=== PATIENT | female | born 1980 | race American Indian/Alaskan Native ===

== ENCOUNTER 2017-12-19 00:32 | Emergency (ER) | payer MEDICAID | END 2017-12-19 00:45 | disposition left against medical advice (07) | LOC: ED 00:32 | DX: R05 Cough (principal); Z53.21 Procedure and treatment not carried out due to patient leaving prior to being seen by health care provider ==

== ENCOUNTER 2019-08-04 21:03 | Emergency (ER) | payer MEDICAID ==
[2019-08-04 21:23] VITALS: BP 122/93
--- NOTE | 2019-08-04 21:33 | Emergency Department Report ---
Blank Doc - Documentation Documentation: Patient signed out before being seen. Patient stated if her boyfriend could not be in the room with her as a visitor she would not stay. Patient was not seen by provider.
== END 2019-08-05 00:16 | disposition left against medical advice (07) ==
LOC: ED 21:03
DX: F10.230 Alcohol dependence with withdrawal, uncomplicated (principal); Z53.21 Procedure and treatment not carried out due to patient leaving prior to being seen by health care provider
CPT/HCPCS: 82962

== ENCOUNTER 2019-08-11 11:51 | Emergency (ER) | payer MEDICAID ==
[2019-08-11] MEDS ORDERED: SODIUM CHLORIDE 0.9% 1000 ML 1,000 ML IV ONE ×2 (12:28→16:02)
[2019-08-11] MEDS ORDERED: LORazepam 2 MG/ML VIAL IV PRN (12:28)
[2019-08-11] MEDS ORDERED: chlordiazePOXIDE 25 MG CAP PO PRN (12:28)
--- NOTE | 2019-08-11 12:38 | Emergency Department Report ---
ED Alcohol HPI - General Chief Complaint: Alcohol Stated Complaint: ETOH Time Seen by Provider: 08/11/19 12:25 Source: patient Mode of arrival: Wheelchair Limitations: No Limitations - History of Present Illness Initial Comments: CC: "I need a detox from alcohol." HPI: Ms. Segura is a 38 yo female with hx of alcohol dependence "blood cancer", autoimmune disorder who presents alcohol withdrawal. She has auditory hallucinations. No visual hallucinations. Has been depressed. Has been heavily drinking for the past 2 weeks due to depression. Has nausea/vomiting. Diffuse tingling. Reports fever. Reports cough with hemoptysis. She reports previous ICU admission for DT's MD Complaint: alcohol withdrawal Last Drink: just [employer] Chronic Alcohol Use: Yes Previous Visits for Alcohol Intoxication?: Yes Recent Trauma: No Associated Symptoms: nausea, vomiting, other (tingling hemoptysis) - Related Data Previous Rx's Medication Instructions Recorded Last Taken Type LORazepam [Ativan] 1 mg PO TID PRN #7 tablet 09/03/13 Unknown Rx Potassium Chloride [Klor-Con] 20 meq PO BID #14 packet 01/26/18 Unknown Rx levETIRAcetam [Keppra TAB] 500 mg PO BID #60 tablet 02/22/18 Unknown Rx chlordiazePOXIDE [Librium] 25 mg PO QID #10 capsule 08/11/19 Unknown Rx Allergies Allergy/AdvReac Type Severity Reaction Status Date / Time ibuprofen Allergy Vomiting Verified 02/23/18 07:13 ED Review of Systems ROS: Stated complaint: ETOH Other details as noted in HPI Comment: All other systems reviewed and negative Constitutional: fever. denies: malaise Respiratory: cough Gastrointestinal: denies: abdominal pain, nausea, vomiting Neurological: paresthesias ED Past Medical Hx - Past Medical History Previous Medical History?: Yes Hx Renal Disease: Yes Hx of Cancer: Yes (blood) Hx Seizures: Yes (from alcohol withdrawal) Hx Psychiatric Treatment: No Additional medical history: Alcohol dependence, immune def disorder - Surgical History Past Surgical History?: Yes Additional Surgical History: facial surgery secondary to infection. tonsillectomy - Social History Smoking Status: Current Every Day Smoker Substance Use Type: Alcohol - Medications Home Medications: Home Medications Medication Instructions Recorded Confirmed Last Taken Type LORazepam [Ativan] 1 mg PO TID PRN #7 tablet 09/03/13 05/01/14 Unknown Rx Potassium Chloride [Klor-Con] 20 meq PO BID #14 packet 01/26/18 Unknown Rx levETIRAcetam [Keppra TAB] 500 mg PO BID #60 tablet 02/22/18 Unknown Rx chlordiazePOXIDE [Librium] 25 mg PO QID #10 capsule 08/11/19 Unknown Rx ED Physical Exam - General Limitations: No Limitations General appearance: alert, in no apparent distress, other (insightful, no tremor) - Head Head exam: Present: atraumatic, normocephalic - Eye Eye exam: Present: normal appearance - ENT ENT exam: Present: mucous membranes moist - Neck Neck exam: Present: normal inspection - Respiratory Respiratory exam: Present: normal lung sounds bilaterally. Absent: respiratory distress, wheezes, rales, rhonchi - Cardiovascular Cardiovascular Exam: Present: normal rhythm, tachycardia, normal heart sounds. Absent: systolic murmur, diastolic murmur, rubs, gallop - GI/Abdominal GI/Abdominal exam: Present: soft, normal bowel sounds. Absent: distended, tenderness, guarding, rebound - Extremities Exam Extremities exam: Present: normal inspection - Neurological Exam Neurological exam: Present: alert, oriented X3 - Psychiatric Psychiatric exam: Present: normal affect, normal mood - Skin Skin exam: Present: warm, dry, intact, normal color. Absent: rash ED Course Vital Signs 08/11/19 08/11/19 12:02 13:10 Temperature 98.1 F 98.5 F Pulse Rate 120 H 121 H Respiratory 20 24 Rate Blood Pressure 116/82 Blood Pressure 106/64 [Right] O2 Sat by Pulse 97 98 Oximetry ED Medical Decision Making - Lab Data Result diagrams: 08/11/19 12:43 08/11/19 12:43 Laboratory Results - last 24 hr 08/11/19 08/11/19 08/11/19 12:43 12:43 12:43 WBC 4.7 RBC 4.68 Hgb 13.3 Hct 39.1 MCV 84 MCH 28 MCHC 34 RDW 15.8 H Plt Count 362 Lymph % (Auto) 17.1 [place] % (Auto) 10.7 H Eos % (Auto) 1.6 Baso % (Auto) 1.5 Lymph # 0.8 L [place] # 0.5 Eos # 0.1 Baso # 0.1 Seg Neutrophils % 69.1 Seg Neutrophils # 3.2 PT 13.8 INR 1.08 Sodium 138 Potassium 3.6 Chloride 99.9 Carbon Dioxide 15 L Anion Gap 27 BUN 6 L Creatinine 0.6 L Estimated GFR > 60 BUN/Creatinine Ratio 10 Glucose 94 Calcium 8.6 Total Bilirubin < 0.20 AST 22 ALT 15 Alkaline Phosphatase 67 Total Protein 7.4 Albumin 4.5 Albumin/Globulin Ratio 1.6 Lipase 19 Salicylates Acetaminophen Plasma/Serum Alcohol 08/11/19 08/11/19 08/11/19 12:43 12:43 12:43 WBC RBC Hgb Hct MCV MCH MCHC RDW Plt Count Lymph % (Auto) [place] % (Auto) Eos % (Auto) Baso % (Auto) Lymph # [place] # Eos # Baso # Seg Neutrophils % Seg Neutrophils # PT INR Sodium Potassium Chloride Carbon Dioxide Anion Gap BUN Creatinine Estimated GFR BUN/Creatinine Ratio Glucose Calcium Total Bilirubin AST ALT Alkaline Phosphatase Total Protein Albumin Albumin/Globulin Ratio Lipase Salicylates 35.0 H Acetaminophen < 5.0 L Plasma/Serum Alcohol 0.23 H - Radiology Data Radiology results: report reviewed cxr: no acute findings - Medical Decision Making Ms. Segura presents with acute alcohol intoxication. She is now sober. I have provided outpatient resources for alcohol rehabilitation. She desired librium taper which I prescribed. Critical care attestation.: If time is entered above; I have spent that time in minutes in the direct care of this critically ill patient, excluding procedure time. ED Disposition Clinical Impression: Acute alcohol intoxication Disposition: DC-01 TO HOME OR SELFCARE Is pt being admited?: No Does the pt Need Aspirin: No Condition: Stable Additional Instructions: Please follow-up with the outpatient resources provided to you Prescriptions: chlordiazePOXIDE [Librium] 25 mg PO QID #10 capsule
[2019-08-11 13:22] LABS: Basophils # (Auto) 0.1 K/mm3 (0.0-0.1); Basophils % (Auto) 1.5 % (0.0-1.8); Eosinophils # (Auto) 0.1 K/mm3 (0.0-0.4); Eosinophils % (Auto) 1.6 % (0.0-4.3); Hematocrit 39.1 % (30.3-42.9); Hemoglobin 13.3 gm/dl (10.1-14.3); Lymphocytes # (Auto) 0.8 K/mm3 (1.2-5.4); Lymphocytes % (Auto) 17.1 % (13.4-35.0); Mean Corpuscular HGB Conc 34 % (30-34); Mean Corpuscular Volume 84 fl (79-97); Monocytes # (Auto) 0.5 K/mm3 (0.0-0.8); Monocytes % (Auto) 10.7 % (0.0-7.3); Platelet Count 362 K/mm3 (140-440); Red Blood Count 4.68 M/mm3 (3.65-5.03); Red Cell Distribution Width 15.8 % (13.2-15.2)
--- NOTE | 2019-08-11 13:29 | XRay Report ---
CHEST 1 VIEW 08/11/2019 12:22 PM INDICATION / CLINICAL INFORMATION: cough, fever. COMPARISON: Chest x-ray on 02/23/2018. FINDINGS: SUPPORT DEVICES: None. HEART / MEDIASTINUM: No significant abnormality. LUNGS / PLEURA: No significant pulmonary or pleural abnormality. No pneumothorax. ADDITIONAL FINDINGS: No significant additional findings. IMPRESSION: 1. No acute findings. Signer Name: Aleksandr Marquez MD Signed: 08/11/2019 1:24 PM Workstation Name: [id number]
[2019-08-11 13:39] LABS: Alanine Aminotransferase 15 units/L (7-56); Albumin 4.5 g/dL (3.9-5); BUN/Creatinine Ratio 10; Blood Urea Nitrogen 6 mg/dL (7-17); Calcium 8.6 mg/dL (8.4-10.2); Hemolysis Index 10
[2019-08-11 14:17] LABS: INR 1.08 (0.87-1.13)
[2019-08-11] MEDS ORDERED: ONDANSETRON 4 MG/2 ML INJ IV ONE (18:34)
[2019-08-11 18:54] VITALS: BP 110/79
[2019-08-11 19:04] LABS: Amphetamine Screen,Urine PRESUMPTIVE NEGATIVE; Benzodiazepines Screen,Urine PRESUMPTIVE NEGATIVE; Bilirubin,Urine NEG (Negative); Blood,Urine LG (Negative); Cannabinoid Screen,Urine PRESUMPTIVE NEGATIVE; Cocaine Screen,Urine PRESUMPTIVE NEGATIVE; Color,Urine Yellow (Yellow); Methadone Screen,Urine PRESUMPTIVE NEGATIVE; Mucus,Urine FEW /HPF; Opiate Screen,Urine PRESUMPTIVE NEGATIVE; Urobilinogen,Urine < 2.0 mg/dL (<2.0)
[2019-08-11 19:06] LABS: RBC,Urine > 182.0 /HPF (0.0-6.0)
[2019-08-11 19:07] LABS: WBC,Urine > 182.0 /HPF (0.0-6.0)
== END 2019-08-11 18:54 | disposition home or self-care (01) ==
LOC: ED 11:51
DX: F10.129 Alcohol abuse with intoxication, unspecified (principal); F17.200 Nicotine dependence, unspecified, uncomplicated; R11.2 Nausea with vomiting, unspecified; Z88.6 Allergy status to analgesic agent; Z98.890 Other specified postprocedural states; Z79.899 Other long term (current) drug therapy; Z86.69 Personal history of other diseases of the nervous system and sense organs
CPT/HCPCS: 36415; 71045; 80053; 80307; 81001; 83690; 85025; 85610; 96361; 96374; 96375; 99285; J2060; J2405; J7030; 80320; G0480

== ENCOUNTER 2019-10-14 03:25 | Emergency (ER) | payer MEDICAID ==
[2019-10-14] MEDS ORDERED: levETIRAcetam 1000 MG/NS 0.75% 1,000 MG/100 ML BAG IV ONE (03:33)
[2019-10-14] MEDS ORDERED: SODIUM CHLORIDE 0.9% 1000 ML 1,000 ML IV ONE (03:33)
[2019-10-14] MEDS ORDERED: ONDANSETRON 4 MG/2 ML INJ IV ONE (04:12)
[2019-10-14] MEDS ORDERED: LORazepam 2 MG/ML VIAL IV PRN (04:12)
[2019-10-14] MEDS: LORazepam 2 MG/ML VIAL IV PRN ×2 (04:20→12:28)
[2019-10-14] MEDS ORDERED: THIAMINE 100 MG, FOLIC ACID 1 MG, MULTIPLE VITAMIN INJ, ADULT 10 ML in SODIUM CHLORIDE ... IV ONE (04:42)
--- NOTE | 2019-10-14 05:39 | Emergency Department Report ---
Blank Doc - Documentation Documentation: This patient presents to the emergency department with a complaint of multiple seizures prior to arrival, as well as nausea, vomiting and some lightheadedness. The patient has a seizure disorder history and admits to noncompliance with her Keppra. On top of that, the patient has a history of alcohol abuse/dependence and subsequent withdrawal including 1 previous visit for delirium tremens. At my initial evaluation, the patient is awake and oriented. An EKG was done that does not have any morphology consistent with ST elevation NC. The patient has been placed on a banana bag for IV fluid resuscitation and has been placed on [place] protocol. The patient has been loaded with 1 g of Keppra and has been given a dose of Zofran for her nausea. Labs have been ordered.
[2019-10-14 05:40] LABS: Basophils # (Auto) 0.1 K/mm3 (0.0-0.1); Basophils % (Auto) 1.4 % (0.0-1.8); Eosinophils # (Auto) 0.6 K/mm3 (0.0-0.4); Eosinophils % (Auto) 14.5 % (0.0-4.3); Hematocrit 35.2 % (30.3-42.9); Hemoglobin 11.2 gm/dl (10.1-14.3); Lymphocytes # (Auto) 1.3 K/mm3 (1.2-5.4); Lymphocytes % (Auto) 29.1 % (13.4-35.0); Mean Corpuscular HGB Conc 32 % (30-34); Mean Corpuscular Volume 86 fl (79-97); Monocytes # (Auto) 0.3 K/mm3 (0.0-0.8); Platelet Count 360 K/mm3 (140-440); Red Blood Count 4.08 M/mm3 (3.65-5.03)
[2019-10-14 05:43] LABS: Red Cell Distribution Width 20.5 % (13.2-15.2)
[2019-10-14 06:14] LABS: Alanine Aminotransferase 49 units/L (7-56); Albumin 4.2 g/dL (3.9-5); BUN/Creatinine Ratio 8; Blood Urea Nitrogen 6 mg/dL (7-17); Calcium 8.2 mg/dL (8.4-10.2); Hemolysis Index 8
--- NOTE | 2019-10-14 06:47 | Emergency Department Report ---
ED Seizure HPI - General Chief Complaint: Seizure Stated Complaint: SEIZURES Time Seen by Provider: 10/14/19 03:33 Source: EMS Mode of arrival: Stretcher Limitations: Altered Mental Status - History of Present Illness Initial Comments: 39-year-old female with a past medical history of alcohol dependence/abuse and seizure disorder presents to the hospital with multiple seizures prior to arrival. Patient's been noncompliant with her seizure medication. Patient continues to drink alcohol. History of alcohol withdrawal delirium/seizures in the past. Patient was alert and answer questions during initial provided screening exam. She is drowsy and sleeping during my initial patient contact. She denies any pain. Jasmine Edward CIWA protocol initiated by screening provider. - Related Data Previous Rx's Medication Instructions Recorded Last Taken Type LORazepam [Ativan] 1 mg PO TID PRN #7 tablet 09/03/13 Unknown Rx RX: Potassium Chloride [Klor-Con] 20 meq PO BID #14 packet 01/26/18 Unknown Rx Ondansetron [Zofran Odt] 4 mg PO Q8HR PRN #10 tab.rapdis 10/14/19 Unknown Rx RX: chlordiazePOXIDE [Librium] 25 mg PO QID #20 capsule 10/14/19 Unknown Rx RX: levETIRAcetam [Keppra TAB] 500 mg PO BID #60 tablet 10/14/19 Unknown Rx Allergies Allergy/AdvReac Type Severity Reaction Status Date / Time ibuprofen Allergy Vomiting Verified 02/23/18 07:13 ED Review of Systems ROS: Stated complaint: SEIZURES Other details as noted in HPI Comment: All other systems reviewed and negative ED Past Medical Hx - Past Medical History Previous Medical History?: Yes Hx Renal Disease: Yes Hx Seizures: Yes (from alcohol withdrawal) Hx Psychiatric Treatment: No Additional medical history: Alcohol dependence, immune def disorder, Anemia - Surgical History Additional Surgical History: facial surgery secondary to infection. tonsillectomy - Social History Smoking Status: Current Every Day Smoker Substance Use Type: Alcohol - Medications Home Medications: Home Medications Medication Instructions Recorded Confirmed Last Taken Type LORazepam [Ativan] 1 mg PO TID PRN #7 tablet 09/03/13 05/01/14 Unknown Rx RX: Potassium Chloride [Klor-Con] 20 meq PO BID #14 packet 01/26/18 Unknown Rx Ondansetron [Zofran Odt] 4 mg PO Q8HR PRN #10 tab.rapdis 10/14/19 Unknown Rx RX: chlordiazePOXIDE [Librium] 25 mg PO QID #20 capsule 10/14/19 Unknown Rx RX: levETIRAcetam [Keppra TAB] 500 mg PO BID #60 tablet 10/14/19 Unknown Rx ED Physical Exam - General Limitations: Altered Mental Status - Other Other exam information: General: No acute distress Head: Atraumatic Eyes: normal appearance ENT: Moist mucous membranes Neck: Normal appearance, no midline tenderness Chest: Clear to auscultation bilaterally CV: Tachycardic regular rhythm Abdomen: Soft, normal bowel sounds, nontender, nondistended, no rebound or guarding Back: Normal inspection Extremity: Normal inspection, full range of motion Neuro: Drowsy/sleeping, arousable, no focal deficits Skin: No rash ED Course Vital Signs 10/14/19 10/14/19 10/14/19 03:32 03:38 03:40 Temperature 98.8 F 98.8 F Pulse Rate 112 H 105 H 111 H Respiratory 20 26 H 20 Rate Blood Pressure 121/88 Blood Pressure 121/88 [Right] O2 Sat by Pulse 99 97 99 Oximetry 10/14/19 10/14/19 10/14/19 03:45 04:00 04:06 Temperature Pulse Rate 107 H 100 H Respiratory 17 18 18 Rate Blood Pressure 125/88 115/82 Blood Pressure [Right] O2 Sat by Pulse 98 97 Oximetry 10/14/19 10/14/19 10/14/19 04:15 04:30 04:45 Temperature Pulse Rate 108 H 106 H 100 H Respiratory 16 29 H 19 Rate Blood Pressure 128/92 124/82 124/82 Blood Pressure [Right] O2 Sat by Pulse 98 94 92 Oximetry 10/14/19 10/14/19 10/14/19 05:00 05:15 05:30 Temperature Pulse Rate 109 H 108 H 106 H Respiratory 22 20 21 Rate Blood Pressure 132/87 118/77 106/85 Blood Pressure [Right] O2 Sat by Pulse 92 84 Oximetry 10/14/19 10/14/19 10/14/19 05:45 06:00 06:15 Temperature Pulse Rate 105 H 104 H 105 H Respiratory 21 36 H 18 Rate Blood Pressure 129/91 126/74 106/70 Blood Pressure [Right] O2 Sat by Pulse 96 91 91 Oximetry 10/14/19 10/14/19 10/14/19 06:31 06:45 07:00 Temperature Pulse Rate 130 H 140 H 113 H Respiratory 24 15 22 Rate Blood Pressure 147/108 147/108 118/94 Blood Pressure [Right] O2 Sat by Pulse 100 99 Oximetry 10/14/19 10/14/19 10/14/19 07:15 07:30 08:00 Temperature Pulse Rate 111 H 106 H 103 H Respiratory 21 15 24 Rate Blood Pressure 144/94 146/95 139/85 Blood Pressure [Right] O2 Sat by Pulse 96 96 Oximetry 10/14/19 10/14/19 10/14/19 08:30 09:01 09:30 Temperature Pulse Rate 113 H 100 H 100 H Respiratory 25 H 15 18 Rate Blood Pressure 143/95 165/109 160/108 Blood Pressure [Right] O2 Sat by Pulse 99 98 88 Oximetry - Reevaluation(s) Reevaluation #1: 10/14/19 12:39 Patient awake at this time. While she was resting heart rate in the 90s. When she woke up she had increased tachycardia, episode of vomiting anxiety feeling, mild tremors, and had a CIWA score of 9. Ativan was administered by nurse as per CIWA protocol. Patient states she feels better and prefers to go home with Librium taper. I offered patient admission to the hospital several times for treatment for alcohol withdrawal which she has declined. Patient will also be discharged on Keppra to take at home and encouraged to come back if symptoms worsen. Outpatient alcohol abuse resources will be provided ED Medical Decision Making - Lab Data Result diagrams: 10/14/19 04:09 10/14/19 04:09 Lab Results 10/14/19 10/14/19 10/14/19 Range/Units 04:09 04:09 04:09 WBC 4.3 L (4.5-11.0) K/mm3 RBC 4.08 (3.65-5.03) M/mm3 Hgb 11.2 (10.1-14.3) gm/dl Hct 35.2 (30.3-42.9) % MCV 86 (79-97) fl MCH 28 (28-32) pg MCHC 32 (30-34) % RDW 20.5 H (13.2-15.2) % Plt Count 360 (140-440) K/mm3 Lymph % (Auto) 29.1 (13.4-35.0) % [place] % (Auto) 8.0 H (0.0-7.3) % Eos % (Auto) 14.5 H (0.0-4.3) % Baso % (Auto) 1.4 (0.0-1.8) % Lymph # 1.3 (1.2-5.4) K/mm3 [place] # 0.3 (0.0-0.8) K/mm3 Eos # 0.6 H (0.0-0.4) K/mm3 Baso # 0.1 (0.0-0.1) K/mm3 Seg Neutrophils % 47.0 (40.0-70.0) % Seg Neutrophils # 2.0 (1.8-7.7) K/mm3 Sodium 141 (137-145) mmol/L Potassium 4.1 (3.6-5.0) mmol/L Chloride 106.5 (98-107) mmol/L Carbon Dioxide 18 L (22-30) mmol/L Anion Gap 21 mmol/L BUN 6 L (7-17) mg/dL Creatinine 0.8 (0.7-1.2) mg/dL Estimated GFR > 60 ml/min BUN/Creatinine Ratio 8 % Glucose 84 (65-100) mg/dL Calcium 8.2 L (8.4-10.2) mg/dL Phosphorus (2.5-4.5) mg/dL Magnesium (1.7-2.3) mg/dL Total Bilirubin < 0.20 (0.1-1.2) mg/dL AST 62 H (5-40) units/L ALT 49 (7-56) units/L Alkaline Phosphatase 49 (35-129) units/L Total Protein 6.5 (6.3-8.2) g/dL Albumin 4.2 (3.9-5) g/dL Albumin/Globulin Ratio 1.8 % HCG, Qual (Negative) Plasma/Serum Alcohol 0.28 H (0-0.07) % 10/14/19 10/14/19 10/14/19 Range/Units 04:09 04:21 Unknown WBC (4.5-11.0) K/mm3 RBC (3.65-5.03) M/mm3 Hgb (10.1-14.3) gm/dl Hct (30.3-42.9) % MCV (79-97) fl MCH (28-32) pg MCHC (30-34) % RDW (13.2-15.2) % Plt Count (140-440) K/mm3 Lymph % (Auto) (13.4-35.0) % [place] % (Auto) (0.0-7.3) % Eos % (Auto) (0.0-4.3) % Baso % (Auto) (0.0-1.8) % Lymph # (1.2-5.4) K/mm3 [place] # (0.0-0.8) K/mm3 Eos # (0.0-0.4) K/mm3 Baso # (0.0-0.1) K/mm3 Seg Neutrophils % (40.0-70.0) % Seg Neutrophils # (1.8-7.7) K/mm3 Sodium (137-145) mmol/L Potassium (3.6-5.0) mmol/L Chloride (98-107) mmol/L Carbon Dioxide (22-30) mmol/L Anion Gap mmol/L BUN (7-17) mg/dL Creatinine (0.7-1.2) mg/dL Estimated GFR ml/min BUN/Creatinine Ratio % Glucose (65-100) mg/dL Calcium (8.4-10.2) mg/dL Phosphorus 3.50 (2.5-4.5) mg/dL Magnesium 1.90 2.00 (1.7-2.3) mg/dL Total Bilirubin (0.1-1.2) mg/dL AST (5-40) units/L ALT (7-56) units/L Alkaline Phosphatase (35-129) units/L Total Protein (6.3-8.2) g/dL Albumin (3.9-5) g/dL Albumin/Globulin Ratio % HCG, Qual Negative (Negative) Plasma/Serum Alcohol (0-0.07) % - EKG Data -: EKG Interpreted by [facility] EKG shows normal: sinus rhythm, ST-T waves (No STEMI) Rate: tachycardia (99) - Medical Decision Making Patient initially presented with seizure and acute alcohol intoxication. While she was resting heart rate in the 90s. When she woke up she had increased tachy cardia, episode of vomiting anxiety feeling, mild tremors, and had a CIWA score of 9. Ativan was administered by nurse as per CIWA protocol. Patient states she feels better and prefers to go home with Librium taper. I offered patient admission to the hospital several times for treatment for alcohol withdrawal which she has declined. Patient will also be discharged on Keppra to take at home and encouraged to come back if symptoms worsen. Outpatient alcohol abuse resources will be provided. pt is alert. Critical Care Time: No Critical care attestation.: If time is entered above; I have spent that time in minutes in the direct care of this critically ill patient, excluding procedure time. ED Disposition Clinical Impression: Alcohol dependence, Seizure disorder, Noncompliance with medication regimen Disposition: - TO HOME OR SELFCARE Is pt being admited?: No Does the pt Need Aspirin: No Condition: Stable Instructions: Abuse of Alcohol (ED), Alcohol Withdrawal (ED) Additional Instructions: Take the medication as prescribed. Follow-up with your doctor or doctor/clinic provided. Return if symptoms worsen as indicated by your discharge instructions. Admission was offered because you are exhibiting signs of alcohol withdrawal. You have declined admission to the hospital at this time. Librium has been prescribed to aid with your withdrawal symptoms. If your withdrawal symptoms worsen please come back to the ER for reevaluation. Follow-up with outpatient resources provided. Prescriptions: RX: levETIRAcetam [Keppra TAB] 500 mg PO BID #60 tablet RX: chlordiazePOXIDE [Librium] 25 mg PO QID #20 capsule Ondansetron [Zofran Odt] 4 mg PO Q8HR PRN #10 tab.rapdis PRN Reason: Nausea And Vomiting Referrals: PRIMARY CARE,MD [Primary Care Provider] - 3-5 Days
[2019-10-14 12:40] VITALS: BP 150/99
[2019-10-14 12:55] LABS: Bilirubin,Urine NEG (Negative); Blood,Urine NEG (Negative); Color,Urine Yellow (Yellow); Protein,Urine <15 mg/dL mg/dL (Negative); Urobilinogen,Urine < 2.0 mg/dL (<2.0); WBC,Urine < 1.0 /HPF (0.0-6.0)
[2019-10-14 13:29] LABS: Amphetamine Screen,Urine Negative; Benzodiazepines Screen,Urine Negative; Cannabinoid Screen,Urine Negative; Cocaine Screen,Urine Negative; Methadone Screen,Urine Negative; Opiate Screen,Urine Negative
== END 2019-10-14 13:14 | disposition left against medical advice (07) ==
LOC: ED 03:25
DX: F10.20 Alcohol dependence, uncomplicated (principal); G40.909 Epilepsy, unspecified, not intractable, without status epilepticus; Z91.14 Patient's other noncompliance with medication regimen; N28.9 Disorder of kidney and ureter, unspecified; F17.200 Nicotine dependence, unspecified, uncomplicated; Z79.899 Other long term (current) drug therapy; Z98.890 Other specified postprocedural states; Z88.8 Allergy status to other drugs, medicaments and biological substances
CPT/HCPCS: 36415; 80053; 80307; 81001; 83735; 84100; 84703; 85025; 93005; 96365; 96366; 96368; 96375; 96376; 99284; J1953; J2060; J2405; J3411; J7030; 80320; 96367; G0480

== ENCOUNTER 2021-11-10 12:04 | Emergency (ER) | payer BC, MEDICAID ==
[2021-11-10 12:26] VITALS: BP 113/77
== END 2021-11-10 13:13 | disposition left against medical advice (07) ==
LOC: ED 12:04
DX: R56.9 Unspecified convulsions (principal); Z53.21 Procedure and treatment not carried out due to patient leaving prior to being seen by health care provider

== ENCOUNTER 2021-11-12 00:05 | Emergency (ER) | payer BC, MEDICAID | END 2021-11-12 05:42 | disposition left against medical advice (07) | LOC: ED 00:05 | DX: R56.9 Unspecified convulsions (principal); Z53.21 Procedure and treatment not carried out due to patient leaving prior to being seen by health care provider ==